=== PATIENT | male | born 1970 | race Caucasian/White ===

== ENCOUNTER 2018-01-31 13:08 | Emergency (ER) | payer OTHER, SELFPAY ==
[2018-01-31] MEDS ORDERED: LIDOCAINE 1% MPF 5 ML VIAL ONE (13:17)
[2018-01-31] MEDS ORDERED: TETANUS & DIPHTHERIA TOX,ADULT 0.5 ML VIAL ONE (13:18)
[2018-01-31] MEDS ORDERED: DOXYCYCLINE 100 MG CAP PO ONE (13:18)
--- NOTE | 2018-01-31 13:25 | EDPHYS ---
Physician Documentation [facility] Name: Travis Cardona Jr Age: 47 yrs Sex: Male : 1970 Arrival Date: 01/31/2018 Time: 13:10 Bed 25 Private MD: ED Physician Yogi Lemon HPI: 01/31 13:36 This 47 yrs old Male presents to ER via EMS with complaints of fishhook in kb nose. 13:36 The patient or guardian reports the patient has a suspected foreign body, of the bridge kb of nose. The reported likely foreign body is a fishhook. Onset: The symptoms/episode began/occurred just prior to arrival. Current symptoms: foreign body sensation. Treatment Prior to Arrival: none. The patient has not experienced similar symptoms in the past. The patient has not recently seen a physician. Historical: - Allergies: 13:30 No Known Allergies; la1 - PMHx: 13:30 None; la1 - Immunization history:: Adult Immunizations up to date. - Social history:: Smoking status: unknown. - Ebola Screening: : No symptoms or risks identified at this time. ROS: 13:32 Constitutional: Negative for fever, chills, and weight loss, Cardiovascular: Negative kb for chest pain, palpitations, and edema, Respiratory: Negative for shortness of breath, cough, wheezing, and pleuritic chest pain, Abdomen/GI: Negative for abdominal pain, nausea, vomiting, diarrhea, and constipation, Back: Negative for injury and pain, : Negative for injury, bleeding, discharge, and swelling, MS/Extremity: Negative for injury and deformity, Neuro: Negative for headache, weakness, numbness, tingling, and seizure. 13:32 Skin: Positive for puncture, of the bridge of nose, fishhook. Exam: 13:32 Constitutional: This is a well developed, well nourished patient who is awake, alert, kb and in no acute distress. Chest/axilla: Normal chest wall appearance and motion. Nontender with no deformity. No lesions are appreciated. Cardiovascular: Regular rate and rhythm with a normal S1 and S2. No gallops, murmurs, or rubs. Normal PMI, no JVD. No pulse deficits. Respiratory: Lungs have equal breath sounds bilaterally, clear to auscultation and percussion. No rales, rhonchi or wheezes noted. No increased work of breathing, no retractions or nasal flaring. Abdomen/GI: Soft, non-tender, with normal bowel sounds. No distension or tympany. No guarding or rebound. No evidence of tenderness throughout. MS/ Extremity: Pulses equal, no cyanosis. Neurovascular intact. Full, normal range of motion. Neuro: Awake and alert, GCS 15, oriented to person, place, time, and situation. Cranial nerves II-XII grossly intact. Motor strength 5/5 in all extremities. Sensory grossly intact. Cerebellar exam normal. Normal gait. 13:32 Skin: injury, puncture(s), that are superficial, of the bridge of nose. Vital Signs: 13:30 BP 146 / 94; Pulse 67; Resp 16; Temp 97.3; Pulse Ox 100% on R/A; la1 Procedures: 13:35 Foreign Body Removal: a fishhook, from the bridge of nose, by hook cut and pulled kb through . Dressing: none, The patient tolerated the removal well. MDM: 13:11 Patient medically screened. kb 13:35 Data reviewed: vital signs, nurses notes. Data interpreted: Pulse oximetry: on room air kb is 100 %. Interpretation: normal. Counseling: I had a detailed discussion with the patient and/or guardian regarding: the historical points, exam findings, and any diagnostic results supporting the discharge/admit diagnosis, the need for outpatient follow up, a family practitioner, to return to the emergency department if symptoms worsen or persist or if there are any questions or concerns that arise at home. Administered Medications: 13:31 Drug: Tetanus-Diphtheria Toxoid Adult 0.5 ml {Certified Welding Inspector: [employer]. Exp: la1 02/12/2020. Lot #: [id number]. } Route: IM; Site: right deltoid; 13:32 Follow up: Response: No adverse reaction la1 13:32 Drug: Lidocaine (1 %) 1 vials Volume: 5 ml; Route: Infiltration; la1 13:32 Follow up: Response: No adverse reaction la1 13:32 Drug: Doxycycline 100 mg Route: PO; la1 13:32 Follow up: Response: Medication administered at discharge. la1 Disposition: 14:26 Co-signature as Attending Physician, Yogi Lemon MD. rn Disposition: 01/31/18 13:24 Discharged to Home. Impression: Puncture wound with foreign body of nose - fishhook removed. - Condition is Stable. - Discharge Instructions: Puncture Wound, [id number], Foreign Body. - Prescriptions for Doxycycline Hyclate 100 mg Oral Tablet - take 1 tablet by ORAL route every 12 hours; 20 tablet. - Medication Reconciliation Form, Thank You Letter, Antibiotic Education, Prescription Opioid Use form. - Follow up: Emergency Department; When: As needed; Reason: Worsening of condition. Follow up: Private Physician; When: 2 - 3 days; Reason: Recheck today's complaints, Continuance of care, Re-evaluation by your physician. Signatures: Demi Irizarry FNP-C AKUA-CkYogi Funez MD MD rn Cassius Oleary RN RN la1 Corrections: (The following items were deleted from the chart) 13:32 13:24 01/31/2018 13:24 Discharged to Home. Impression: Puncture wound with foreign body la1 of nose - fishhook removed. Condition is Stable. Forms are Medication Reconciliation Form, Thank You Letter, Antibiotic Education, Prescription Opioid Use. Follow up: Emergency Department; When: As needed; Reason: Worsening of condition. Follow up: Private Physician; When: 2 - 3 days; Reason: Recheck today's complaints, Continuance of care, Re-evaluation by your physician. kb 13:35 13:32 01/31/2018 13:24 Discharged to Home. Impression: Puncture wound with foreign body la1 of nose - fishhook removed. Condition is Stable. Discharge Instructions: Puncture Wound, [id number], Foreign Body. Prescriptions for Doxycycline Hyclate 100 mg Oral Tablet - take 1 tablet by ORAL route every 12 hours; 20 tablet. and Forms are Medication Reconciliation Form, Thank You Letter, Antibiotic Education, Prescription Opioid Use. Follow up: Emergency Department; When: As needed; Reason: Worsening of condition. Follow up: Private Physician; When: 2 - 3 days; Reason: Recheck today's complaints, Continuance of care, Re-evaluation by your physician. la1
--- NOTE | 2018-01-31 13:33 | ER ---
Nurse's Notes [facility] Name: Travis Cardona Jr Age: 47 yrs Sex: Male : 1970 Arrival Date: 01/31/2018 Time: 13:10 Bed 25 Private MD: Diagnosis: Puncture wound with foreign body of nose-fishhook removed Presentation: 01/31 13:30 Presenting complaint: Patient states: I got a hook in my nose. Transition of care: la1 patient was not received from another setting of care. Onset of symptoms was January 31, 2018. Risk Assessment: Do you want to hurt yourself or someone else? Patient reports no desire to harm self or others. Initial Sepsis Screen: Does the patient meet any 2 criteria? No. Patient's initial sepsis screen is negative. Does the patient have a suspected source of infection? No. Patient's initial sepsis screen is negative. Care prior to arrival: None. 13:30 Method Of Arrival: EMS: [facility] la1 13:30 Acuity: EMILY 4 la1 Historical: - Allergies: 13:30 No Known Allergies; la1 - PMHx: 13:30 None; la1 - Immunization history:: Adult Immunizations up to date. - Social history:: Smoking status: unknown. - Ebola Screening: : No symptoms or risks identified at this time. Screenin:31 Abuse screen: Denies threats or abuse. Nutritional screening: No deficits noted. la1 Tuberculosis screening: No symptoms or risk factors identified. Fall Risk None identified. Assessment: 13:30 Reassessment: Patient appears in no apparent distress at this time. Patient is alert, la1 oriented x 3, equal unlabored respirations, skin warm/dry/pink. General: Appears in no apparent distress. Behavior is calm, cooperative. Pain: Denies pain. Neuro: Level of Consciousness is awake, alert, obeys commands, Oriented to person, place, time, situation. Cardiovascular: Capillary refill < 3 seconds Patient's skin is warm and dry. Respiratory: Airway is patent Respiratory effort is even, unlabored, Respiratory pattern is regular, symmetrical. GI: No signs and/or symptoms were reported involving the gastrointestinal system. : No signs and/or symptoms were reported regarding the genitourinary system. Vital Signs: 13:30 BP 146 / 94; Pulse 67; Resp 16; Temp 97.3; Pulse Ox 100% on R/A; la1 ED Course: 13:10 Patient arrived in ED. la1 13:11 Demi Irizarry FNP-C [facility]. kb 13:11 Yogi Lemon MD is Attending Physician. kb 13:29 Cassius Oleary, CHAD is Primary Nurse. la1 13:30 Triage completed. la1 13:30 Arm band placed on right wrist. la1 13:31 Bed in low position. Call light in reach. la1 13:31 No provider procedures requiring assistance completed. Patient did not have IV access la1 during this emergency room visit. 13:33 Primary Nurse role handed off by Cassius Oleary RN la1 Administered Medications: 13:31 Drug: Tetanus-Diphtheria Toxoid Adult 0.5 ml {Silver [employer]: [employer]. Exp: la1 02/12/2020. Lot #: [id number]. } Route: IM; Site: right deltoid; 13:32 Follow up: Response: No adverse reaction la1 13:32 Drug: Lidocaine (1 %) 1 vials Volume: 5 ml; Route: Infiltration; la1 13:32 Follow up: Response: No adverse reaction la1 13:32 Drug: Doxycycline 100 mg Route: PO; la1 13:32 Follow up: Response: Medication administered at discharge. la1 Outcome: 13:24 Discharge ordered by . kb 13:32 Discharged to home ambulatory. la1 13:32 Condition: stable 13:32 Discharge instructions given to patient, Instructed on discharge instructions, follow up and referral plans. medication usage, Demonstrated understanding of instructions, follow-up care, medications, Prescriptions given X 1. 13:32 Patient left the ED. la1 13:35 Patient left the ED. la1 Signatures: Demi Irizarry FNP-C PNEUMATIC TOOL OPERATOR-Ckb Cassius Oleary, RN RN la1
== END 2018-01-31 13:35 | disposition home or self-care (01) ==
LOC: ER 13:08
PROC: 09CM0ZZ Extirpation of Matter from Nasal Septum, Open Approach (ICD-10-PCS; principal; 2018-01-31)
DX: S01.24XA Puncture wound with foreign body of nose, initial encounter (principal); Z23 Encounter for immunization
CPT/HCPCS: 90714; 99283